=== PATIENT | male | born 1945 | race Caucasian/White ===

== ENCOUNTER 2021-03-28 11:34 | Inpatient (IN) | payer OTHER ==
[2021-03-28] MEDS ORDERED: SODIUM CHLORIDE 0.9% 500 ML INFUS.BAG IV ONE (12:03)
[2021-03-28] MEDS ORDERED: VANCOMYCIN 1 GM in D5W (PRE-DOCKED) 1,000 MG/250 ML IVPB ONE (12:03)
[2021-03-28] MEDS ORDERED: VANCOMYCIN 1,000 MG VIAL (RESTRICTED TO ID ONLY) ONE (12:09)
[2021-03-28] MEDS ORDERED: cefTRIAXone SODIUM 1 GM VIAL ONE (12:09)
[2021-03-28 13:02] LABS: INR 1.4 (0.83-1.09); PROTHROMBIN TIME (PATIENT) 16.1 SEC (9.7-13.0)
[2021-03-28 13:09] LABS: ALBUMIN 3.8 g/dl (3.4-5.0); BILIRUBIN,TOTAL 1.2 mg/dl (0.2-1); CALCIUM 8.7 mg/dl (8.5-10); CREATININE 1.8 mg/dl (0.55-1.3); TOT PROT 6.6 g/dl (6.4-8.2)
[2021-03-28 13:45] LABS: BASO % 0.4 % (0-2.0); EOS % 0.1 % (0-4.5); HEMATOCRIT 36.6 % (35.4-49); HEMOGLOBIN 12.3 GM/dL (11.7-16.9); LYMPH % 3.9 % (8-40); MCH 29.1 pg (25.7-33.7); MCHC 33.7 g/dl (32.0-35.9); MEAN CELL VOLUME 86.2 fl (80-96); MEAN PLT VOLUME 8.3 fl (7.5-11.1); MONO % 8.8 % (3.8-10.2); NEUT % 86.8 % (42.8-82.8); PLATELET COUNT 195 10^3/uL (134-434); RBC 4.24 M/mm3 (4.00-5.60)
[2021-03-28] MEDS ORDERED: MAGNESIUM SULF 50% (8.12 MEQ/2 ML-1 GM VIAL) IVPB ONE (15:30)
[2021-03-28] MEDS ORDERED: MAGNESIUM 1GM/D5W - 2 GM/200 ML IVPB IVPB ONE (15:41)
[2021-03-28] MEDS ORDERED: ENOXAPARIN NA (PORCINE) 60 MG/0.6 ML DISP.SYRIN SQ ONE (15:41)
[2021-03-28] MEDS ORDERED: POTASSIUM CHLORIDE TABS 20 MEQ TABLET.ER (FP) PO ONE (15:41)
[2021-03-28] MEDS: POTASSIUM CHLORIDE TABS 20 MEQ TABLET.ER (FP) PO SCH ×2 (15:45→20:12)
[2021-03-28] MEDS: ENOXAPARIN NA (PORCINE) 40 MG/0.4 ML DISP.SYRIN SQ SCH (15:49)
[2021-03-28 18:18] VITALS: BMI 25.4
[2021-03-28] MEDS: ATENOLOL 50 MG TABLET (FP) PO SCH (21:25)
[2021-03-28] MEDS: guaiFENesin 600 MG TABLET.ER (FP) PO SCH (21:25)
[2021-03-28] MEDS: DOCUSATE SODIUM 100 MG CAPSULE (FP) PO SCH (21:25)
[2021-03-28] MEDS: TAMSULOSIN HCL 0.4 MG CAP PO SCH (21:25)
[2021-03-28] MEDS: LORATADINE 10 MG TABLET PO SCH (21:25)
[2021-03-28] MEDS: ACETAMINOPHEN 325 MG TABLET (FP) PO PRN (22:41)
[2021-03-29 09:43] LABS: BASO % 0.5 % (0-2.0); EOS % 2.3 % (0-4.5); HEMATOCRIT 36.8 % (35.4-49); HEMOGLOBIN 11.9 GM/dL (11.7-16.9); LYMPH % 10.2 % (8-40); MCH 28.6 pg (25.7-33.7); MCHC 32.4 g/dl (32.0-35.9); MEAN CELL VOLUME 88.4 fl (80-96); MEAN PLT VOLUME 8.7 fl (7.5-11.1); PLATELET COUNT 173 10^3/uL (134-434); RBC 4.16 M/mm3 (4.00-5.60); RDW 13.1 % (11.9-15.9); WHITE BLOOD COUNT 8.2 K/mm3 (4.0-10.0)
[2021-03-29 09:44] LABS: ALBUMIN 3.3 g/dl (3.4-5.0); BILIRUBIN,TOTAL 0.8 mg/dl (0.2-1); CALCIUM 8.3 mg/dl (8.5-10); CREATININE 1.4 mg/dl (0.55-1.3); MAGNESIUM 2.1 mg/dL (1.8-2.4); TOT PROT 5.9 g/dl (6.4-8.2)
[2021-03-29] MEDS ORDERED: CEFTRIAXONE 1 GM in DEXTROSE 5%-WATER - 50 ML IVPB SCH (10:00)
[2021-03-29] MEDS ORDERED: PIPERACILLIN/TAZOB 2.25 GM 2.25 GM in DEXTROSE 5%-WATER - 50 ML IVPB SCH (10:00)
[2021-03-29] MEDS ORDERED: PIPERACILLIN/TAZOBACTAM 2.25 GM VIAL IVPB ONE ×3 (10:31→23:58)
[2021-03-29] MEDS ORDERED: DEXTROSE 5%-WATER - 50 ML IVPB ONE ×3 (10:31→23:59)
[2021-03-29] MEDS: SODIUM CHLORIDE 1,000 ML IV SCH ×2 (10:57→18:27)
[2021-03-29] MEDS: ENOXAPARIN NA (PORCINE) 40 MG/0.4 ML DISP.SYRIN SQ SCH (10:58)
[2021-03-29] MEDS: ACETAMINOPHEN 325 MG TABLET (FP) PO PRN (10:58)
[2021-03-29] MEDS: PIPERACILLIN/TAZOB 2.25 GM 2.25 GM in DEXTROSE 5%-WATER - 50 ML IVPB SCH (18:25)
[2021-03-29] MEDS: DOCUSATE SODIUM 100 MG CAPSULE (FP) PO SCH (21:21)
[2021-03-29] MEDS: TAMSULOSIN HCL 0.4 MG CAP PO SCH (21:21)
[2021-03-29] MEDS: LORATADINE 10 MG TABLET PO SCH (21:21)
[2021-03-29] MEDS: guaiFENesin 600 MG TABLET.ER (FP) PO SCH (21:22)
[2021-03-29] MEDS: ATENOLOL 50 MG TABLET (FP) PO SCH (21:22)
[2021-03-30] MEDS: PIPERACILLIN/TAZOB 2.25 GM 2.25 GM in DEXTROSE 5%-WATER - 50 ML IVPB SCH ×3 (01:09→18:24)
[2021-03-30 08:47] LABS: CALCIUM 8.1 mg/dl (8.5-10); CREATININE 1.4 mg/dl (0.55-1.3)
[2021-03-30 09:17] LABS: BASO % 0.4 % (0-2.0); HEMATOCRIT 34.4 % (35.4-49); HEMOGLOBIN 11.9 GM/dL (11.7-16.9); MCH 29.9 pg (25.7-33.7); MCHC 34.5 g/dl (32.0-35.9); MEAN CELL VOLUME 86.7 fl (80-96); MEAN PLT VOLUME 8.2 fl (7.5-11.1); MONO % 15.4 % (3.8-10.2); NEUT % 65.2 % (42.8-82.8); PLATELET COUNT 173 10^3/uL (134-434); RBC 3.96 M/mm3 (4.00-5.60); RDW 13.4 % (11.9-15.9); WHITE BLOOD COUNT 6.1 K/mm3 (4.0-10.0)
[2021-03-30] MEDS: ENOXAPARIN NA (PORCINE) 40 MG/0.4 ML DISP.SYRIN SQ SCH (10:23)
[2021-03-30] MEDS: POTASSIUM CHLORIDE TABS 20 MEQ TABLET.ER (FP) PO SCH ×2 (15:26→21:10)
[2021-03-30] MEDS ORDERED: PIPERACILLIN/TAZOBACTAM 2.25 GM VIAL IVPB ONE ×2 (18:10→23:54)
[2021-03-30] MEDS ORDERED: DEXTROSE 5%-WATER - 50 ML IVPB ONE ×2 (18:10→23:54)
[2021-03-30] MEDS: DOCUSATE SODIUM 100 MG CAPSULE (FP) PO SCH (21:10)
[2021-03-30] MEDS: TAMSULOSIN HCL 0.4 MG CAP PO SCH (21:10)
[2021-03-30] MEDS: guaiFENesin 600 MG TABLET.ER (FP) PO SCH (21:11)
[2021-03-30] MEDS: ATENOLOL 50 MG TABLET (FP) PO SCH (21:11)
[2021-03-30] MEDS: LORATADINE 10 MG TABLET PO SCH (21:11)
[2021-03-31] MEDS: PIPERACILLIN/TAZOB 2.25 GM 2.25 GM in DEXTROSE 5%-WATER - 50 ML IVPB SCH ×3 (01:11→17:54)
[2021-03-31 08:49] LABS: ALBUMIN 3.1 g/dl (3.4-5.0); BILIRUBIN,TOTAL 0.8 mg/dl (0.2-1); CALCIUM 8.8 mg/dl (8.5-10); CREATININE 1.2 mg/dl (0.55-1.3); MAGNESIUM 1.7 mg/dL (1.8-2.4); TOT PROT 5.9 g/dl (6.4-8.2)
[2021-03-31] MEDS ORDERED: DEXTROSE 5%-WATER - 50 ML IVPB ONE (09:49)
[2021-03-31] MEDS ORDERED: PIPERACILLIN/TAZOBACTAM 2.25 GM VIAL IVPB ONE (09:49)
[2021-03-31] MEDS: ENOXAPARIN NA (PORCINE) 40 MG/0.4 ML DISP.SYRIN SQ SCH (09:54)
[2021-03-31 09:58] LABS: BASO % 0.5 % (0-2.0); EOS % 4.7 % (0-4.5); HEMATOCRIT 35.8 % (35.4-49); HEMOGLOBIN 12.3 GM/dL (11.7-16.9); LYMPH % 14.7 % (8-40); MCHC 34.3 g/dl (32.0-35.9); MEAN CELL VOLUME 87.5 fl (80-96); MEAN PLT VOLUME 8.2 fl (7.5-11.1); MONO % 10.7 % (3.8-10.2); NEUT % 69.4 % (42.8-82.8); PLATELET COUNT 199 10^3/uL (134-434); RDW 13.5 % (11.9-15.9); WHITE BLOOD COUNT 6.2 K/mm3 (4.0-10.0)
[2021-03-31] MEDS ORDERED: LOPERAMIDE HCL 2 MG CAPSULE PO ONE (12:06)
[2021-03-31] MEDS ORDERED: LOPERAMIDE HCL 2 MG CAPSULE PO PRN (12:07)
[2021-03-31] MEDS: LORATADINE 10 MG TABLET PO SCH (21:30)
[2021-03-31] MEDS: ATENOLOL 50 MG TABLET (FP) PO SCH (21:30)
[2021-03-31] MEDS: TAMSULOSIN HCL 0.4 MG CAP PO SCH (21:30)
[2021-03-31] MEDS: guaiFENesin 600 MG TABLET.ER (FP) PO SCH (21:30)
[2021-03-31] MEDS: DOCUSATE SODIUM 100 MG CAPSULE (FP) PO SCH (21:30)
[2021-04-01] MEDS ORDERED: PIPERACILLIN/TAZOBACTAM 2.25 GM VIAL IVPB ONE ×2 (00:48→09:58)
[2021-04-01] MEDS ORDERED: DEXTROSE 5%-WATER - 50 ML IVPB ONE ×2 (00:49→09:59)
[2021-04-01] MEDS: PIPERACILLIN/TAZOB 2.25 GM 2.25 GM in DEXTROSE 5%-WATER - 50 ML IVPB SCH ×2 (01:29→10:01)
[2021-04-01 08:43] LABS: ALBUMIN 3.4 g/dl (3.4-5.0); BILIRUBIN,TOTAL 0.8 mg/dl (0.2-1); CALCIUM 9.3 mg/dl (8.5-10); CREATININE 1.3 mg/dl (0.55-1.3); MAGNESIUM 1.6 mg/dL (1.8-2.4); TOT PROT 6.2 g/dl (6.4-8.2)
[2021-04-01 08:55] LABS: BASO % 0.6 % (0-2.0); EOS % 3.7 % (0-4.5); HEMATOCRIT 39.4 % (35.4-49); HEMOGLOBIN 12.8 GM/dL (11.7-16.9); LYMPH % 21.2 % (8-40); MCH 28.8 pg (25.7-33.7); MCHC 32.7 g/dl (32.0-35.9); MEAN CELL VOLUME 88.3 fl (80-96); MEAN PLT VOLUME 8.6 fl (7.5-11.1); MONO % 9.8 % (3.8-10.2); NEUT % 64.7 % (42.8-82.8); PLATELET COUNT 238 10^3/uL (134-434); RBC 4.46 M/mm3 (4.00-5.60); RDW 13.1 % (11.9-15.9); WHITE BLOOD COUNT 6.9 K/mm3 (4.0-10.0)
[2021-04-01] MEDS ORDERED: MAGNESIUM SULF 50% (8.12 MEQ/2 ML-1 GM VIAL) IVPB ONE (10:32)
[2021-04-01] MEDS ORDERED: MAGNESIUM SULFATE IN WATER 2 GM/50 ML IVPB IVPB ONE (11:00)
[2021-04-01 14:21] VITALS: BP 108/57; PULSE 71; TEMP 98.6
== END 2021-04-01 15:30 | disposition short-term general hospital (02) | DRG 540 ==
LOC: FER 11:34 → FM/S 12:05
PROVIDERS: ADMIT Internal Medicine; ATTEND Nurse Practitioner Acute Care
PROC: 0HBMXZZ Excision of Right Foot Skin, External Approach (ICD-10-PCS; principal; 2021-03-29)
DX: M86.8X7 Other osteomyelitis, ankle and foot (principal); N17.9 Acute kidney failure, unspecified; I10 Essential (primary) hypertension; N40.0 Benign prostatic hyperplasia without lower urinary tract symptoms; L03.031 Cellulitis of right toe; I45.10 Unspecified right bundle-branch block; L97.519 Non-pressure chronic ulcer of other part of right foot with unspecified severity; I44.0 Atrioventricular block, first degree; E87.6 Hypokalemia; G62.9 Polyneuropathy, unspecified; C61 Malignant neoplasm of prostate; J32.8 Other chronic sinusitis; E83.42 Hypomagnesemia
CPT/HCPCS: 36415; 71046-TC-FY; 73610-TC-RT-FY; 73630-TC-RT-FY; 73718-TC-RT; 80048; 80053; 81003; 82248; 83735; 85025; 85610; 85651; 85730; 87040; 87070; 87086; 87186; 87205; 93005; 99285-25; C9803; U0003; U0005